=== PATIENT | female | born 1995 | race African-American/Black ===

== ENCOUNTER 2017-08-02 23:52 | Inpatient (IN) | payer SELFPAY ==
[~2017-08-02] VITALS: Ht 160 cm; Wt 86.2 kg
[2017-08-03] MEDS ORDERED: ONDANSETRON HCL 4MG/2ML VIAL IV ONE (06:45)
[2017-08-03] MEDS ORDERED: VANCOMYCIN 1 G PREMIX 200 ML IV SCH (06:45)
[2017-08-03] MEDS ORDERED: MORPHINE SULFATE 1MG/ML 1ML INJ SYR(NEO) IV ONE (06:45)
[2017-08-03 07:01] LABS: BASOPHILS % 0.7 % (0.0-2.0); EOSINOPHILS % 3.7 % (0.0-5.0); HEMOGLOBIN. 8.8 g/dL (12.0-16.0); LYMPHOCYTES % 24.4 % (20.0-50.0); MEAN CORPUSCULAR VOLUME 66.7 fL (81.0-99.0); MEAN PLATELET VOLUME 8.6 fl (7.4-10.4); NEUTROPHILS % 65.2 % (40.0-76.0); PLATELET 322 x1000/uL (130-400); RED CELL DISTRIBUTION WIDTH 18.7 % (11.6-14.6)
[2017-08-03 07:08] LABS: CHLORIDE 102 mEq/L (98-107)
[2017-08-03 07:13] LABS: CARBON DIOXIDE 26 mEq/L (21-32)
[2017-08-03] MEDS ORDERED: MORPHINE SULFATE 4 MG/ML CPJ (NOT FOR IM USE) IV ONE (07:15)
[2017-08-03] MEDS ORDERED: IOHEXOL-300 100 ML BOTTLE ONE (10:57)
[2017-08-03 12:31] LABS: PLATELET ESTIMATE NORMAL
[2017-08-03] MEDS ORDERED: OLANZAPINE 5MG TABLET ODT PO ONE (13:15)
[2017-08-03 16:25] VITALS: BP 95/49
[2017-08-03 18:00] VITALS: BP 99/50
[2017-08-03 20:00] VITALS: BP 116/61
[2017-08-03] MEDS ORDERED: NA PHOS,M-B/NA PHOS,DI-BA ENEMA 118ML PR PRN (21:15)
[2017-08-03] MEDS ORDERED: DOCUSATE SODIUM 100MG CAPSULE PO PRN (21:15)
[2017-08-03] MEDS ORDERED: MAGNESIUM/ALUMINUM HYDROXIDE/SIMETHICONE 30ML UDC PO PRN (21:15)
[2017-08-03] MEDS ORDERED: ACETAMINOPHEN 650MG/20.3ML UDC GT PRN (21:15)
[2017-08-03] MEDS ORDERED: ACETAMINOPHEN 325MG TABLET PO PRN (21:15)
[2017-08-03] MEDS ORDERED: DIPHENHYDRAMINE 50MG/ML VIAL IV PRN (21:15)
[2017-08-03] MEDS ORDERED: CLONIDINE 0.1MG TABLET PO PRN (21:15)
[2017-08-03] MEDS ORDERED: IPRATROPIUM/ALBUTEROL 0.5-3(2.5)MG/3ML NEB INH PRN (21:15)
[2017-08-03] MEDS ORDERED: PIPERACILLIN/TAZ 2.25G PREMIX 50 ML IV SCH (21:15)
[2017-08-03] MEDS ORDERED: ACETAMINOPHEN 650MG SUPP PR PRN (21:15)
[2017-08-03] MEDS ORDERED: GUAIFENESIN 200MG/10ML SUGAR FREE UDC PO PRN (21:15)
[2017-08-03 22:02] VITALS: BP 99/49
[2017-08-03] MEDS: PIPERACILLIN/TAZ 3.375G PREMIX 50 ML IV SCH (22:57)
[2017-08-03] MEDS: SODIUM CHLORIDE 0.9% INJ 3ML FLUSH IVF SCH (22:57)
[2017-08-03 23:34] LABS: CARBON DIOXIDE 29 mEq/L (21-32); CHLORIDE 102 mEq/L (98-107)
[2017-08-03] MEDS: VANCOMYCIN 750 MG PREMIX 150 ML IV SCH (23:37)
[2017-08-04] VITALS: BP 119/69
[2017-08-04] MEDS: HYDROCODONE/ACETAMINOPHEN 5/325MG TABLET PO PRN (00:13)
[2017-08-04 04:00] VITALS: BP 112/50
[2017-08-04 06:45] LABS: BASOPHILS % 0.8 % (0.0-2.0); EOSINOPHILS % 4.2 % (0.0-5.0); HEMATOCRIT. 28.1 % (36.0-48.0); HEMOGLOBIN. 8.8 g/dL (12.0-16.0); LYMPHOCYTES % 27.1 % (20.0-50.0); MEAN CORPUSCULAR HEMOGLOBIN 20.8 pg (28.0-32.0); MEAN CORPUSCULAR VOLUME 66.6 fL (81.0-99.0); MEAN PLATELET VOLUME 9.3 fl (7.4-10.4); MONOCYTES % 8.5 % (2.0-8.0); NEUTROPHILS % 59.4 % (40.0-76.0); PLATELET 314 x1000/uL (130-400); RED BLOOD CELL COUNT 4.22 mill/uL (4.2-5.4); RED CELL DISTRIBUTION WIDTH 18.5 % (11.6-14.6)
[2017-08-04] MEDS: SODIUM CHLORIDE 0.9% INJ 3ML FLUSH IVF SCH ×3 (06:53→21:16)
[2017-08-04] MEDS: PIPERACILLIN/TAZ 3.375G PREMIX 50 ML IV SCH ×2 (06:53→23:09)
[2017-08-04 07:58] LABS: CARBON DIOXIDE 29 mEq/L (21-32); CHLORIDE 101 mEq/L (98-107)
[2017-08-04 08:00] VITALS: BP 113/58
[2017-08-04] MEDS: VANCOMYCIN 750 MG PREMIX 150 ML IV SCH (08:05)
[2017-08-04 12:00] VITALS: BP 109/62
[2017-08-04] MEDS ORDERED: VANCOMYCIN 750 MG PREMIX 150 ML IV NR (13:00)
[2017-08-04 16:00] VITALS: BP 90/46
[2017-08-04 17:57] LABS: CLARITY URINE CLEAR (CLEAR); COLOR URINE YELLOW (YELLOW); GLUCOSE URINE NEGATIVE (NEGATIVE); KETONES URINE NEGATIVE (NEGATIVE); LEUKOCYTE ESTERASE URINE NEGATIVE (NEGATIVE); NITRITE URINE NEGATIVE (NEGATIVE); OCCULT BLOOD URINE 3+ (NEGATIVE); PH URINE 7.5 (4.5-8.0); PROTEIN URINE NEGATIVE (NEGATIVE); SPECIFIC GRAVITY URINE 1.017 (1.005-1.030); UROBILINOGEN URINE 0.2 E.U./dL (0.2-1.0)
[2017-08-04 18:27] LABS: *BARBITURATES SCREEN URINE NEGATIVE (NEGATIVE); *BENZODIAZEPINES SCREEN URINE NEGATIVE (NEGATIVE); *COCAINE SCREEN URINE NEGATIVE (NEGATIVE); CANNABINOID URINE SCREEN NEGATIVE (NEGATIVE); METHADONE URINE SCREEN NEGATIVE (NEGATIVE); PHENCYCLIDINE URINE SCREEN NEGATIVE (NEGATIVE)
[2017-08-04 18:30] LABS: *AMPHETAMINES SCREEN URINE PRESUMTIVE POSITIVE (NEGATIVE); OPIATES URINE SCREEN PRESUMTIVE POSITIVE (NEGATIVE)
[2017-08-04 20:00] VITALS: BP 112/64
[2017-08-04] MEDS: VANCOMYCIN 1250MG in DEXTROSE 5% WATER 250ML IV SCH (21:15)
[2017-08-04] MEDS: NICOTINE 21MG PATCH TD SCH (22:09)
[2017-08-05] VITALS: BP 101/62
[2017-08-05 04:00] VITALS: BP 118/53
[2017-08-05] MEDS: SODIUM CHLORIDE 0.9% INJ 3ML FLUSH IVF SCH ×3 (06:19→21:23)
[2017-08-05] MEDS: PIPERACILLIN/TAZ 3.375G PREMIX 50 ML IV SCH ×3 (06:19→20:15)
[2017-08-05 08:00] VITALS: BP 113/64
[2017-08-05] MEDS: VANCOMYCIN 1250MG in DEXTROSE 5% WATER 250ML IV SCH ×2 (08:49→21:23)
[2017-08-05] MEDS: NICOTINE 21MG PATCH TD SCH (08:54)
[2017-08-05] MEDS: HYDROCODONE/ACETAMINOPHEN 5/325MG TABLET PO PRN (08:56)
[2017-08-05 12:00] VITALS: BP 120/70
[2017-08-05 12:13] LABS: BASOPHILS % 0.7 % (0.0-2.0); EOSINOPHILS % 4.6 % (0.0-5.0); HEMATOCRIT. 30.2 % (36.0-48.0); HEMOGLOBIN. 9.4 g/dL (12.0-16.0); LYMPHOCYTES % 28.2 % (20.0-50.0); MEAN CORPUSCULAR HEMOGLOBIN 20.8 pg (28.0-32.0); MEAN CORPUSCULAR VOLUME 66.7 fL (81.0-99.0); MONOCYTES % 9.1 % (2.0-8.0); NEUTROPHILS % 57.4 % (40.0-76.0); PLATELET 344 x1000/uL (130-400); RED BLOOD CELL COUNT 4.53 mill/uL (4.2-5.4); RED CELL DISTRIBUTION WIDTH 18.5 % (11.6-14.6)
[2017-08-05 12:41] LABS: CARBON DIOXIDE 28 mEq/L (21-32); CHLORIDE 98 mEq/L (98-107)
[2017-08-05 16:00] VITALS: BP 110/60
[2017-08-05 20:00] VITALS: BP 111/52
[2017-08-06] VITALS: BP 109/60
[2017-08-06] MEDS: PIPERACILLIN/TAZ 3.375G PREMIX 50 ML IV SCH ×3 (02:30→16:24)
[2017-08-06 04:00] VITALS: BP 98/47
[2017-08-06] MEDS: SODIUM CHLORIDE 0.9% INJ 3ML FLUSH IVF SCH (06:10)
[2017-08-06 08:30] VITALS: BP 115/55
[2017-08-06] MEDS: NICOTINE 21MG PATCH TD SCH (10:21)
[2017-08-06] MEDS ORDERED: LEVO500T2 PO (12:10)
[2017-08-06] MEDS ORDERED: SULF1TAB48 PO (12:11)
[2017-08-06] MEDS: VANCOMYCIN 1250MG in DEXTROSE 5% WATER 250ML IV SCH (12:18)
[2017-08-06 13:32] LABS: CARBON DIOXIDE 29 mEq/L (21-32); CHLORIDE 101 mEq/L (98-107)
[2017-08-06] MEDS ORDERED: VANCOMYCIN 1250MG in DEXTROSE 5% WATER 250ML IV SCH (15:00)
[2017-08-06 16:00] VITALS: BP 99/49
== END 2017-08-06 18:30 | disposition home or self-care (01) | DRG 720 ==
LOC: ER 23:52 → ENRESERV 08-03 15:03 → 6EST 08-03 16:20
PROVIDERS: ADMIT Family Medicine; ATTEND Family Medicine
DX: A41.50 Gram-negative sepsis, unspecified (principal); J44.9 Chronic obstructive pulmonary disease, unspecified; E66.9 Obesity, unspecified; T63.301A Toxic effect of unspecified spider venom, accidental (unintentional), initial encounter; J45.909 Unspecified asthma, uncomplicated; D64.9 Anemia, unspecified; L03.211 Cellulitis of face; L03.213 Periorbital cellulitis; Z59.0 Homelessness; Z68.33 Body mass index [BMI] 33.0-33.9, adult
CPT/HCPCS: 36415; 70487; 80048; 80053; 80202; 80305; 81001; 85025; 87040; 87077; 87086; 87186; 96365; 99285; C1893; J2270; J2405; J2543; J3370; J7030; J7050; J7060; Q9967

== ENCOUNTER 2017-08-24 07:09 | Emergency (ER) | payer MEDICAID ==
[~2017-08-24 07:09] MED LIST: LEVO500T2 PO; SULF1TAB48 PO
== END 2017-08-24 08:10 | disposition left against medical advice (07) ==
LOC: ER 07:41
DX: Z53.21 Procedure and treatment not carried out due to patient leaving prior to being seen by health care provider (principal)

== ENCOUNTER 2017-08-27 06:41 | Emergency (ER) | payer MEDICAID ==
[~2017-08-27] VITALS: Ht 172.7 cm; Wt 86.0 kg
[2017-08-27 07:12] LABS: BASOPHILS % 0.9 % (0.0-2.0); EOSINOPHILS % 3.4 % (0.0-5.0); HEMATOCRIT. 24.7 % (36.0-48.0); HEMOGLOBIN. 7.9 g/dL (12.0-16.0); MEAN CORPUSCULAR HEMOGLOBIN 21.6 pg (28.0-32.0); MEAN CORPUSCULAR VOLUME 67.7 fL (81.0-99.0); MEAN PLATELET VOLUME 7.7 fl (7.4-10.4); MONOCYTES % 5.9 % (2.0-8.0); NEUTROPHILS % 52.8 % (40.0-76.0); PLATELET 303 x1000/uL (130-400); RED BLOOD CELL COUNT 3.64 mill/uL (4.2-5.4); RED CELL DISTRIBUTION WIDTH 18.5 % (11.6-14.6)
[2017-08-27 07:27] LABS: CARBON DIOXIDE 24 mEq/L (21-32); CHLORIDE 110 mEq/L (98-107); ETHANOL BLOOD < 10 mg/dL
[2017-08-27 08:09] LABS: PLATELET ESTIMATE NORMAL
[2017-08-27 08:56] LABS: CLARITY URINE CLOUDY (CLEAR); COLOR URINE ORANGE (YELLOW); GLUCOSE URINE NEGATIVE (NEGATIVE); KETONES URINE NEGATIVE (NEGATIVE); LEUKOCYTE ESTERASE URINE TRACE (NEGATIVE); NITRITE URINE NEGATIVE (NEGATIVE); OCCULT BLOOD URINE 3+ (NEGATIVE); PROTEIN URINE 1+ (NEGATIVE); SPECIFIC GRAVITY URINE 1.033 (1.005-1.030)
[2017-08-27 09:13] LABS: *BARBITURATES SCREEN URINE NEGATIVE (NEGATIVE); *BENZODIAZEPINES SCREEN URINE NEGATIVE (NEGATIVE); *COCAINE SCREEN URINE NEGATIVE (NEGATIVE); CANNABINOID URINE SCREEN NEGATIVE (NEGATIVE); METHADONE URINE SCREEN NEGATIVE (NEGATIVE); OPIATES URINE SCREEN NEGATIVE (NEGATIVE); PHENCYCLIDINE URINE SCREEN NEGATIVE (NEGATIVE)
[2017-08-27 09:19] LABS: *AMPHETAMINES SCREEN URINE PRESUMTIVE POSITIVE (NEGATIVE)
[2017-08-27] MEDS ORDERED: POTASSIUM CHLORIDE 10MEQ TABLET SR PO NR (09:45)
[2017-08-28 08:00] VITALS: BP 140/77
== END 2017-08-28 09:32 | disposition home or self-care (01) ==
LOC: ER 06:41
DX: R45.851 Suicidal ideations (principal); J45.909 Unspecified asthma, uncomplicated; F17.200 Nicotine dependence, unspecified, uncomplicated
CPT/HCPCS: 36415; 80053; 80305; 80307; 80329; 81001; 81025; 85025; 99284; G0482

== ENCOUNTER 2017-11-30 22:49 | Emergency (ER) | payer SELFPAY ==
[~2017-11-30] VITALS: Ht 167.6 cm; Wt 104.0 kg
[2017-11-30 22:54] VITALS: BP 114/78
== END 2017-12-01 00:21 | disposition left against medical advice (07) ==
LOC: ER 23:12
DX: Z53.21 Procedure and treatment not carried out due to patient leaving prior to being seen by health care provider (principal)

== ENCOUNTER 2018-08-12 20:52 | Emergency (ER) | payer SELFPAY ==
[~2018-08-12] VITALS: Ht 170.2 cm; Wt 95.0 kg
[2018-08-12] MEDS ORDERED: SODIUM CHLORIDE 0.9% 1,000 ML IV ONE (21:44)
[2018-08-12] MEDS ORDERED: CEFTRIAXONE 1 G PREMIX 50 ML IV ONE (21:45)
[2018-08-12] MEDS ORDERED: ACETAMINOPHEN 325MG TABLET PO ONE (22:00)
[2018-08-12 23:37] LABS: BASOPHILS % 0.9 % (0.0-2.0); EOSINOPHILS % 1.4 % (0.0-5.0); HEMATOCRIT. 30.2 % (36.0-48.0); HEMOGLOBIN. 9.1 g/dL (12.0-16.0); LYMPHOCYTES % 24.2 % (20.0-50.0); MEAN CORPUSCULAR VOLUME 66.2 fL (81.0-99.0); MEAN PLATELET VOLUME 8.8 fl (7.4-10.4); MONOCYTES % 8.5 % (2.0-8.0); PLATELET 396 x1000/uL (130-400); RED BLOOD CELL COUNT 4.57 mill/uL (4.2-5.4); RED CELL DISTRIBUTION WIDTH 25.7 % (11.6-14.6)
[2018-08-12 23:40] LABS: CHLORIDE 104 mEq/L (98-107)
[2018-08-12 23:42] LABS: HCG SCREEN NEGATIVE
[2018-08-12 23:44] LABS: ETHANOL BLOOD < 10 mg/dL
[2018-08-12 23:51] LABS: B-HCG QUANTITATIVE < 1 mIU/mL (<3)
[2018-08-13 00:26] VITALS: BP 121/81
[2018-08-13] MEDS ORDERED: IBUPROFEN 600MG TABLET PO ONE (00:30)
[2018-08-13 01:30] LABS: PLATELET ESTIMATE NORMAL
[2018-08-13 03:34] LABS: CLARITY URINE CLOUDY (CLEAR); COLOR URINE YELLOW (YELLOW); KETONES URINE TRACE (NEGATIVE); LEUKOCYTE ESTERASE URINE NEGATIVE (NEGATIVE); NITRITE URINE NEGATIVE (NEGATIVE); OCCULT BLOOD URINE 2+ (NEGATIVE); PH URINE 5.5 (4.5-8.0); PROTEIN URINE TRACE (NEGATIVE); SPECIFIC GRAVITY URINE 1.043 (1.005-1.030); UROBILINOGEN URINE 0.2 E.U./dL (0.2-1.0)
[2018-08-13 03:43] LABS: METHADONE URINE SCREEN NEGATIVE (NEGATIVE); OPIATES URINE SCREEN NEGATIVE (NEGATIVE)
[2018-08-13 03:46] LABS: *BARBITURATES SCREEN URINE NEGATIVE (NEGATIVE); *BENZODIAZEPINES SCREEN URINE NEGATIVE (NEGATIVE); *COCAINE SCREEN URINE NEGATIVE (NEGATIVE); CANNABINOID URINE SCREEN NEGATIVE (NEGATIVE); PHENCYCLIDINE URINE SCREEN NEGATIVE (NEGATIVE)
[2018-08-13 04:05] LABS: *AMPHETAMINES SCREEN URINE PRESUMTIVE POSITIVE (NEGATIVE)
== END 2018-08-13 07:31 | disposition home or self-care (01) ==
LOC: ER 20:52
DX: R45.851 Suicidal ideations (principal); K04.7 Periapical abscess without sinus; I10 Essential (primary) hypertension; J45.909 Unspecified asthma, uncomplicated; Z79.899 Other long term (current) drug therapy; Z98.890 Other specified postprocedural states
CPT/HCPCS: 36415; 76830; 76856; 80053; 80305; 80307; 80329; 81003; 84702; 84703; 85025; 93005; 96365; 99285; G0482; J0696; J7030; Z7610

== ENCOUNTER 2018-09-03 18:54 | Emergency (ER) | payer MEDICAID ==
[~2018-09-03] VITALS: Ht 160 cm; Wt 104.5 kg
[2018-09-03] MEDS ORDERED: SODIUM CHLORIDE 0.9% 1000ML BAG (SEPSIS BOLUS) IV ONE (19:15)
[2018-09-03] MEDS ORDERED: LORAZEPAM 2MG/ML CPJ IM ONE (19:30)
[2018-09-03 19:34] VITALS: BP 136/76
[2018-09-03 20:22] LABS: BASOPHILS % 0.6 % (0.0-2.0); EOSINOPHILS % 1.1 % (0.0-5.0); HEMATOCRIT. 28.3 % (36.0-48.0); HEMOGLOBIN. 8.7 g/dL (12.0-16.0); LYMPHOCYTES % 20.4 % (20.0-50.0); MEAN CORPUSCULAR HEMOGLOBIN 20.2 pg (28.0-32.0); MEAN CORPUSCULAR VOLUME 65.7 fL (81.0-99.0); MEAN PLATELET VOLUME 8.7 fl (7.4-10.4); MONOCYTES % 9.2 % (2.0-8.0); NEUTROPHILS % 68.7 % (40.0-76.0); PLATELET 433 x1000/uL (130-400); RED BLOOD CELL COUNT 4.31 mill/uL (4.2-5.4); RED CELL DISTRIBUTION WIDTH 26.2 % (11.6-14.6)
[2018-09-03 20:27] LABS: PROTHROMBIN TIME 10.3 sec (9.1-11.1)
[2018-09-03 20:30] LABS: CHLORIDE 107 mEq/L (98-107)
[2018-09-03 20:41] LABS: *BARBITURATES SCREEN URINE NEGATIVE (NEGATIVE); *BENZODIAZEPINES SCREEN URINE NEGATIVE (NEGATIVE); *COCAINE SCREEN URINE NEGATIVE (NEGATIVE)
[2018-09-03 20:42] LABS: CANNABINOID URINE SCREEN NEGATIVE (NEGATIVE); METHADONE URINE SCREEN NEGATIVE (NEGATIVE); OPIATES URINE SCREEN NEGATIVE (NEGATIVE); PHENCYCLIDINE URINE SCREEN NEGATIVE (NEGATIVE)
[2018-09-03 20:48] LABS: *AMPHETAMINES SCREEN URINE PRESUMTIVE POSITIVE (NEGATIVE)
[2018-09-03 20:58] LABS: CLARITY URINE CLOUDY (CLEAR); COLOR URINE YELLOW (YELLOW); KETONES URINE TRACE (NEGATIVE); LEUKOCYTE ESTERASE URINE NEGATIVE (NEGATIVE); NITRITE URINE NEGATIVE (NEGATIVE); OCCULT BLOOD URINE 1+ (NEGATIVE); PH URINE 5.5 (4.5-8.0); PROTEIN URINE 1+ (NEGATIVE); SPECIFIC GRAVITY URINE 1.022 (1.005-1.030); UROBILINOGEN URINE 0.2 E.U./dL (0.2-1.0)
[2018-09-03 21:11] LABS: PLATELET ESTIMATE NORMAL
== END 2018-09-03 21:55 | disposition home or self-care (01) ==
LOC: ER 19:15 → CANBEDREQ 22:03
DX: F15.10 Other stimulant abuse, uncomplicated (principal); R00.0 Tachycardia, unspecified; R06.02 Shortness of breath; D72.829 Elevated white blood cell count, unspecified; D64.9 Anemia, unspecified; R05 Cough; R07.89 Other chest pain; J45.909 Unspecified asthma, uncomplicated; I10 Essential (primary) hypertension; F17.200 Nicotine dependence, unspecified, uncomplicated; Z98.890 Other specified postprocedural states
CPT/HCPCS: 36415; 80053; 80305; 81003; 81025; 83605; 84145; 84484; 85025; 85610; 87040; 87086; 93005; 96372; 99285; J2060; J7030

== ENCOUNTER 2019-04-26 20:11 | Emergency (ER) | payer SELFPAY ==
[~2019-04-26] VITALS: Ht 162.6 cm; Wt 79.0 kg
[2019-04-26] MEDS ORDERED: SODIUM CHLORIDE 0.9% 1,000 ML IV ONE (21:59)
[2019-04-26] MEDS ORDERED: ONDANSETRON HCL 4MG/2ML INJ IV STA (21:59)
[2019-04-26 22:45] LABS: CLARITY URINE CLOUDY (CLEAR); COLOR URINE YELLOW (YELLOW); KETONES URINE NEGATIVE (NEGATIVE); LEUKOCYTE ESTERASE URINE NEGATIVE (NEGATIVE); NITRITE URINE NEGATIVE (NEGATIVE); OCCULT BLOOD URINE NEGATIVE (NEGATIVE); PH URINE 6.5 (4.5-8.0); PROTEIN URINE TRACE (NEGATIVE); SPECIFIC GRAVITY URINE 1.037 (1.005-1.030); UROBILINOGEN URINE 0.2 E.U./dL (0.2-1.0)
[2019-04-26 22:56] LABS: CHLORIDE 105 mEq/L (98-107)
[2019-04-26 23:01] LABS: BASOPHILS % 0.7 % (0.0-2.0); HEMATOCRIT. 36.7 % (36.0-48.0); HEMOGLOBIN. 11.4 g/dL (12.0-16.0); LYMPHOCYTES % 24.3 % (20.0-50.0); MEAN CORPUSCULAR HEMOGLOBIN 20.9 pg (28.0-32.0); MEAN CORPUSCULAR VOLUME 67.2 fL (81.0-99.0); MONOCYTES % 5.6 % (2.0-8.0); NEUTROPHILS % 66.4 % (40.0-76.0); RED BLOOD CELL COUNT 5.46 mill/uL (4.2-5.4); RED CELL DISTRIBUTION WIDTH 20.9 % (11.6-14.6)
[2019-04-26 23:10] LABS: MEAN PLATELET VOLUME 9.1 fl (7.4-10.4); PLATELET 317 x1000/uL (130-400); PLATELET ESTIMATE NORMAL
[2019-04-27] MEDS ORDERED: ONDANSETRON 4MG ODT PO ONE (01:45)
[2019-04-27 02:32] VITALS: BP 116/70
== END 2019-04-27 02:30 | disposition home or self-care (01) ==
LOC: ER 20:11
DX: O21.9 Vomiting of pregnancy, unspecified (principal); Z3A.01 Less than 8 weeks gestation of pregnancy
CPT/HCPCS: 36415; 80053; 81003; 81025; 83690; 85025; 85610; 96361; 96374; 99283; J2405; J7030; Q0162; Z7610

== ENCOUNTER 2019-05-27 00:43 | Emergency (ER) | payer SELFPAY ==
[~2019-05-27] VITALS: Ht 160 cm; Wt 82.0 kg
[2019-05-27] MEDS ORDERED: SODIUM CHLORIDE 0.9% 1,000 ML IV ONE ×2 (01:03→17:19)
[2019-05-27 01:23] LABS: BASOPHILS % 0.3 % (0.0-2.0); EOSINOPHILS % 1.1 % (0.0-5.0); HEMATOCRIT. 30.5 % (36.0-48.0); HEMOGLOBIN. 9.9 g/dL (12.0-16.0); LYMPHOCYTES % 16.7 % (20.0-50.0); MEAN CORPUSCULAR HEMOGLOBIN 22.9 pg (28.0-32.0); MEAN CORPUSCULAR VOLUME 70.5 fL (81.0-99.0); MEAN PLATELET VOLUME 8.9 fl (7.4-10.4); MONOCYTES % 5.8 % (2.0-8.0); NEUTROPHILS % 76.1 % (40.0-76.0); PLATELET 282 x1000/uL (130-400); RED BLOOD CELL COUNT 4.32 mill/uL (4.2-5.4); RED CELL DISTRIBUTION WIDTH 22.6 % (11.6-14.6)
[2019-05-27 01:26] LABS: CHLORIDE 106 mEq/L (98-107)
[2019-05-27 01:30] LABS: ETHANOL BLOOD < 10 mg/dL
[2019-05-27 01:46] LABS: CLARITY URINE CLOUDY (CLEAR); COLOR URINE YELLOW (YELLOW); KETONES URINE 1+ (NEGATIVE); LEUKOCYTE ESTERASE URINE NEGATIVE (NEGATIVE); NITRITE URINE NEGATIVE (NEGATIVE); OCCULT BLOOD URINE NEGATIVE (NEGATIVE); PROTEIN URINE 2+ (NEGATIVE); SPECIFIC GRAVITY URINE 1.029 (1.005-1.030)
[2019-05-27 01:55] LABS: *BARBITURATES SCREEN URINE NEGATIVE (NEGATIVE); *BENZODIAZEPINES SCREEN URINE NEGATIVE (NEGATIVE); *COCAINE SCREEN URINE NEGATIVE (NEGATIVE); METHADONE URINE SCREEN NEGATIVE (NEGATIVE); OPIATES URINE SCREEN NEGATIVE (NEGATIVE)
[2019-05-27 01:56] LABS: CANNABINOID URINE SCREEN NEGATIVE (NEGATIVE); PHENCYCLIDINE URINE SCREEN NEGATIVE (NEGATIVE)
[2019-05-27 02:12] LABS: *AMPHETAMINES SCREEN URINE PRESUMTIVE POSITIVE (NEGATIVE)
[2019-05-27] MEDS ORDERED: BUPR100T13 MT (03:27)
[2019-05-27] MEDS ORDERED: BUPR300T52 MT (03:27)
[2019-05-27] MEDS ORDERED: ASPI-1158 PO (03:27)
[2019-05-27] MEDS ORDERED: QUET300T19 MT (03:27)
[2019-05-27] MEDS ORDERED: TRAZ-213 MT (03:27)
[2019-05-27] MEDS ORDERED: ONDANSETRON HCL 4MG/2ML INJ IV STA (17:19)
[2019-05-27] MEDS ORDERED: ONDANSETRON 4MG ODT PO ONE (17:45)
[2019-05-27 17:47] LABS: HEMATOCRIT. 31.5 % (36.0-48.0); MEAN CORPUSCULAR HEMOGLOBIN 22.6 pg (28.0-32.0); MEAN CORPUSCULAR VOLUME 70.8 fL (81.0-99.0); MEAN PLATELET VOLUME 9.3 fl (7.4-10.4); PLATELET 301 x1000/uL (130-400); RED BLOOD CELL COUNT 4.45 mill/uL (4.2-5.4); RED CELL DISTRIBUTION WIDTH 23.2 % (11.6-14.6)
[2019-05-27 19:16] LABS: PLATELET ESTIMATE NORMAL
[2019-05-27] MEDS ORDERED: ONDANSETRON 4MG/5ML UDC PO ONE (21:30)
[2019-05-27] MEDS ORDERED: ONDANSETRON 4MG ODT PO NR (22:01)
[2019-05-30 07:34] VITALS: BP 119/66
== END 2019-05-30 12:54 | disposition home or self-care (01) ==
LOC: ER 00:43
DX: O26.891 Other specified pregnancy related conditions, first trimester (principal); T43.592A Poisoning by other antipsychotics and neuroleptics, intentional self-harm, initial encounter; T43.212A Poisoning by selective serotonin and norepinephrine reuptake inhibitors, intentional self-harm, initial encounter; R45.851 Suicidal ideations; F15.10 Other stimulant abuse, uncomplicated; J45.909 Unspecified asthma, uncomplicated; F32.9 Major depressive disorder, single episode, unspecified; I10 Essential (primary) hypertension; Y92.89 Other specified places as the place of occurrence of the external cause; Z98.890 Other specified postprocedural states; Z3A.11 11 weeks gestation of pregnancy; Z79.899 Other long term (current) drug therapy
CPT/HCPCS: 36415; 76830; 76856; 80053; 80305; 80307; 80320; 80329; 81003; 81025; 83690; 83735; 85025; 93005; 99284; J7030; Q0162; G0480

== ENCOUNTER 2019-09-01 16:48 | Observation (INO) | payer MEDICAID ==
[~2019-09-01] VITALS: Ht 160 cm; Wt 86.2 kg
[~2019-09-01 16:48] MED LIST changes: +ASPI-1158 PO; +BUPR100T13 MT; +BUPR300T52 MT; +QUET300T19 MT; +TRAZ-213 MT
[2019-09-01] MEDS ORDERED: LACTATED RINGERS 1,000 ML IV SCH (18:08)
[2019-09-01] MEDS ORDERED: LACTATED RINGERS 1,000 ML IV NR (18:08)
[2019-09-01] MEDS ORDERED: ONDANSETRON HCL 4MG/2ML INJ IV NR (18:15)
[2019-09-01] MEDS ORDERED: ACETAMINOPHEN 500MG TABLET PO NR (18:15)
[2019-09-01] MEDS ORDERED: CEFAZOLIN 2,000 MG in DEXT 5% WATER 100 ML IV NR (18:30)
[2019-09-01 19:35] LABS: CLARITY URINE CLOUDY (CLEAR); COLOR URINE AMBER (YELLOW); KETONES URINE 4+ (NEGATIVE); LEUKOCYTE ESTERASE URINE TRACE (NEGATIVE); NITRITE URINE NEGATIVE (NEGATIVE); OCCULT BLOOD URINE NEGATIVE (NEGATIVE); PH URINE 6.5 (4.5-8.0); PROTEIN URINE 2+ (NEGATIVE); SPECIFIC GRAVITY URINE 1.034 (1.005-1.030)
[2019-09-01 20:32] LABS: HEMATOCRIT 25.8 % (36.0-48.0); HEMOGLOBIN 8.1 g/dL (12.0-16.0); MEAN CORPUSCULAR HEMOGLOBIN 22.3 pg (28.0-32.0); MEAN CORPUSCULAR VOLUME 70.7 fL (81.0-99.0); PLATELET 283 x1000/uL (130-400); RED BLOOD CELL COUNT 3.64 mill/uL (4.2-5.4); RED CELL DISTRIBUTION WIDTH 17.2 % (11.6-14.6)
[2019-09-01 20:38] LABS: CHLORIDE 101 mEq/L (98-107)
[2019-09-01] MEDS ORDERED: ONDA4TAB5 MT (21:06)
[2019-09-01] MEDS ORDERED: FAMO-135 MT (21:06)
[2019-09-01] MEDS ORDERED: POTASSIUM CHLORIDE 20MEQ TABLET SR PO NR (21:15)
[2019-09-01] MEDS ORDERED: FAMOTIDINE 20MG TABLET PO NR (21:16)
[2019-09-01] MEDS: ONDANSETRON HCL 4MG/2ML INJ IV PRN (22:28)
[2019-09-01] MEDS ORDERED: DEXT 5%/LACTATED RINGERS 1,000 ML IV SCH (22:30)
[2019-09-01 23:23] LABS: *BARBITURATES SCREEN URINE NEGATIVE (NEGATIVE); *BENZODIAZEPINES SCREEN URINE NEGATIVE (NEGATIVE); *COCAINE SCREEN URINE NEGATIVE (NEGATIVE)
[2019-09-01 23:24] LABS: CANNABINOID URINE SCREEN NEGATIVE (NEGATIVE); METHADONE URINE SCREEN NEGATIVE (NEGATIVE); OPIATES URINE SCREEN NEGATIVE (NEGATIVE); PHENCYCLIDINE URINE SCREEN NEGATIVE (NEGATIVE)
[2019-09-01 23:30] LABS: *AMPHETAMINES SCREEN URINE PRESUMTIVE POSITIVE (NEGATIVE)
[2019-09-02] MEDS: ONDANSETRON HCL 4MG/2ML INJ IV PRN (03:06)
[2019-09-08 14:12] LABS: AMPHETAMINE CONF URINE Positive (.)
== END 2019-09-02 06:20 | disposition home or self-care (01) ==
LOC: EDSTATUS 17:15 → 8 EST LDRP 17:16
PROVIDERS: ADMIT Obstetrics & Gynecology; ATTEND Obstetrics & Gynecology
DX: O21.2 Late vomiting of pregnancy (principal); O34.219 Maternal care for unspecified type scar from previous cesarean delivery; Z3A.25 25 weeks gestation of pregnancy
CPT/HCPCS: 36415; 76805; 80053; 80305; 80307; 80359; 81003; 85027; 87804; 96361; 96374; 96375; 96376; 99281; G0378; J0690; J2405; J7060; 96360; 96365

== ENCOUNTER 2019-10-31 23:40 | Observation (INO) | payer MEDICAID ==
[~2019-10-31] VITALS: Ht 160 cm; Wt 90.7 kg
[~2019-10-31 23:40] MED LIST changes: +FAMO-135 MT; -LEVO500T2 PO; +ONDA4TAB5 MT; -SULF1TAB48 PO; -TRAZ-213 MT; +TRAZ-252 MT
[2019-11-01] MEDS ORDERED: SODIUM CHLORIDE 0.9% 1,000 ML IV ONE (00:15)
[2019-11-01 01:17] LABS: CLARITY URINE CLEAR (CLEAR); COLOR URINE DARK YELLOW (YELLOW); KETONES URINE 3+ (NEGATIVE); LEUKOCYTE ESTERASE URINE NEGATIVE (NEGATIVE); NITRITE URINE NEGATIVE (NEGATIVE); OCCULT BLOOD URINE NEGATIVE (NEGATIVE); PROTEIN URINE 1+ (NEGATIVE); SPECIFIC GRAVITY URINE 1.025 (1.005-1.030)
[2019-11-01 01:28] LABS: CANNABINOID URINE SCREEN NEGATIVE (NEGATIVE); OPIATES URINE SCREEN NEGATIVE (NEGATIVE); PHENCYCLIDINE URINE SCREEN NEGATIVE (NEGATIVE)
[2019-11-01 01:29] LABS: *BARBITURATES SCREEN URINE NEGATIVE (NEGATIVE); *BENZODIAZEPINES SCREEN URINE NEGATIVE (NEGATIVE); *COCAINE SCREEN URINE NEGATIVE (NEGATIVE); METHADONE URINE SCREEN NEGATIVE (NEGATIVE)
[2019-11-01 01:30] LABS: *AMPHETAMINES SCREEN URINE PRESUMTIVE POSITIVE (NEGATIVE)
[2019-11-01] MEDS ORDERED: ONDANSETRON HCL 4MG/2ML INJ IV PRN (02:00)
[2019-11-01 03:40] LABS: BASOPHILS % 0.5 % (0.0-2.0); EOSINOPHILS % 1.6 % (0.0-5.0); HEMATOCRIT. 24.6 % (36.0-48.0); HEMOGLOBIN. 7.9 g/dL (12.0-16.0); LYMPHOCYTES % 18.4 % (20.0-50.0); MEAN CORPUSCULAR HEMOGLOBIN 22.4 pg (28.0-32.0); MEAN CORPUSCULAR VOLUME 69.2 fL (81.0-99.0); MEAN PLATELET VOLUME 9.6 fl (7.4-10.4); MONOCYTES % 8.3 % (2.0-8.0); NEUTROPHILS % 71.2 % (40.0-76.0); PLATELET 226 x1000/uL (130-400); RED BLOOD CELL COUNT 3.55 mill/uL (4.2-5.4); RED CELL DISTRIBUTION WIDTH 22.5 % (11.6-14.6)
[2019-11-01 03:41] LABS: CHLORIDE 109 mEq/L (98-107)
[2019-11-01 03:48] LABS: PARTIAL THROMBOPLASTIN TIME 27.7 sec (23.4-31.0); PROTHROMBIN TIME 10.1 sec (9.6-11.0)
[2019-11-01] MEDS ORDERED: ACETAMINOPHEN 500MG TABLET PO ONE (04:30)
[2019-11-01] MEDS ORDERED: KCL 10MEQ/50ML PREMIX 50 ML IV SCH (05:00)
[2019-11-01] MEDS: DIPHENHYDRAMINE 50MG/ML VIAL IM PRN ×2 (05:06→05:11)
[2019-11-01] MEDS ORDERED: LIDOCAINE HCL/PF 1% 10 MG/ML 5ML VIAL ONE (05:13)
[2019-11-01] MEDS ORDERED: PROCHLORPERAZINE 10MG/2ML VIAL IV PRN (07:00)
[2019-11-01 07:51] LABS: PLATELET ESTIMATE NORMAL
[2019-11-01 08:00] VITALS: BP 139/83
== END 2019-11-01 10:30 | disposition home or self-care (01) ==
LOC: 8 EST LDRP 23:40
PROVIDERS: ADMIT Specialist; ATTEND Specialist
DX: O21.9 Vomiting of pregnancy, unspecified (principal); O26.893 Other specified pregnancy related conditions, third trimester; O62.9 Abnormality of forces of labor, unspecified; M54.9 Dorsalgia, unspecified; O12.03 Gestational edema, third trimester; Z3A.33 33 weeks gestation of pregnancy
CPT/HCPCS: 36415; 36430; 76805; 76818; 80053; 80305; 80307; 81003; 84550; 85025; 85384; 85610; 85730; 86850; 86900; 86901; 86920; 96361; 96372; 96374; 99281; G0378; J1200; J2405; J3480; J3490; 96360; P9016

== ENCOUNTER 2019-11-04 08:09 | Observation (INO) | payer MEDICAID ==
[~2019-11-04] VITALS: Ht 160 cm; Wt 90.7 kg
[~2019-11-04 08:09] MED LIST changes: -ASPI-1158 PO; -BUPR100T13 MT; -BUPR300T52 MT
[2019-11-04 09:15] LABS: BASOPHILS % 0.7 % (0.0-2.0); EOSINOPHILS % 1.9 % (0.0-5.0); HEMATOCRIT. 27.7 % (36.0-48.0); HEMOGLOBIN. 9.1 g/dL (12.0-16.0); LYMPHOCYTES % 20.2 % (20.0-50.0); MEAN CORPUSCULAR HEMOGLOBIN 22.7 pg (28.0-32.0); MEAN CORPUSCULAR VOLUME 69.3 fL (81.0-99.0); MEAN PLATELET VOLUME 9.7 fl (7.4-10.4); MONOCYTES % 8.2 % (2.0-8.0); PLATELET 251 x1000/uL (130-400); RED BLOOD CELL COUNT 4.01 mill/uL (4.2-5.4); RED CELL DISTRIBUTION WIDTH 20.9 % (11.6-14.6)
[2019-11-04 09:20] LABS: CLARITY URINE TURBID (CLEAR); COLOR URINE DARK YELLOW (YELLOW); KETONES URINE TRACE (NEGATIVE); LEUKOCYTE ESTERASE URINE 3+ (NEGATIVE); NITRITE URINE NEGATIVE (NEGATIVE); OCCULT BLOOD URINE TRACE (NEGATIVE); PH URINE 8.5 (4.5-8.0); PROTEIN URINE 1+ (NEGATIVE); SPECIFIC GRAVITY URINE 1.015 (1.005-1.030)
[2019-11-04 09:22] LABS: CHLORIDE 108 mEq/L (98-107)
[2019-11-04] MEDS ORDERED: ONDANSETRON HCL 4MG/2ML INJ IV PRN (09:30)
[2019-11-04 09:32] LABS: D-DIMER 1.14 mg/L FEU (<0.50); INR 0.9; PARTIAL THROMBOPLASTIN TIME 22.6 sec (23.4-31.0); PROTHROMBIN TIME 9.7 sec (9.6-11.0)
[2019-11-04 09:40] LABS: *AMPHETAMINES SCREEN URINE NEGATIVE (NEGATIVE)
[2019-11-04 09:41] LABS: *BARBITURATES SCREEN URINE NEGATIVE (NEGATIVE); *BENZODIAZEPINES SCREEN URINE NEGATIVE (NEGATIVE); *COCAINE SCREEN URINE NEGATIVE (NEGATIVE); CANNABINOID URINE SCREEN NEGATIVE (NEGATIVE); METHADONE URINE SCREEN NEGATIVE (NEGATIVE); OPIATES URINE SCREEN NEGATIVE (NEGATIVE); PHENCYCLIDINE URINE SCREEN NEGATIVE (NEGATIVE)
== END 2019-11-04 10:30 | disposition home or self-care (01) ==
LOC: 8 EST LDRP 08:09
PROVIDERS: ADMIT Obstetrics & Gynecology; ATTEND Obstetrics & Gynecology
DX: O26.893 Other specified pregnancy related conditions, third trimester (principal); R10.9 Unspecified abdominal pain; O36.8130 Decreased fetal movements, third trimester, not applicable or unspecified; Z3A.34 34 weeks gestation of pregnancy
CPT/HCPCS: 36415; 80053; 80305; 81003; 84550; 85025; 85379; 85384; 85610; 85730; 87086; 99281; G0378; J2405

== ENCOUNTER 2019-11-05 07:37 | Emergency (ER) | payer MEDICAID ==
[~2019-11-05] VITALS: Ht 160 cm; Wt 91.0 kg
[2019-11-05] MEDS ORDERED: ONDANSETRON 4MG ODT PO ONE (12:00)
[2019-11-05] MEDS ORDERED: CLONIDINE 0.2MG TABLET PO ONE (19:30)
[2019-11-05] MEDS ORDERED: ACETAMINOPHEN 500MG TABLET PO ONE (19:30)
[2019-11-06 14:55] VITALS: BP 119/71
== END 2019-11-06 15:30 | disposition home or self-care (01) ==
LOC: ER 08:06
DX: O26.893 Other specified pregnancy related conditions, third trimester (principal); O16.3 Unspecified maternal hypertension, third trimester; O99.513 Diseases of the respiratory system complicating pregnancy, third trimester; R00.0 Tachycardia, unspecified; Z3A.34 34 weeks gestation of pregnancy; Z79.82 Long term (current) use of aspirin; Z79.899 Other long term (current) drug therapy; Z98.890 Other specified postprocedural states; F32.9 Major depressive disorder, single episode, unspecified; F17.290 Nicotine dependence, other tobacco product, uncomplicated; F15.10 Other stimulant abuse, uncomplicated
CPT/HCPCS: 99284; Q0162

== ENCOUNTER 2019-11-10 02:53 | Observation (INO) | payer MEDICAID ==
[~2019-11-10] VITALS: Ht 160 cm; Wt 90.7 kg
[2019-11-10] MEDS ORDERED: TERBUTALINE SULFATE 1MG/ML VIAL SUBCUT PRN (03:30)
[2019-11-10] MEDS ORDERED: DEXT 5%/LACTATED RINGERS 1,000 ML IV SCH (03:30)
[2019-11-10 05:50] LABS: CHLORIDE 106 mEq/L (98-107)
[2019-11-10 06:23] LABS: PARTIAL THROMBOPLASTIN TIME 28.7 sec (23.4-31.0); PROTHROMBIN TIME 10.3 sec (9.6-11.0)
[2019-11-10 06:24] LABS: CLARITY URINE CLOUDY (CLEAR); COLOR URINE DARK YELLOW (YELLOW); KETONES URINE 1+ (NEGATIVE); LEUKOCYTE ESTERASE URINE 2+ (NEGATIVE); NITRITE URINE NEGATIVE (NEGATIVE); OCCULT BLOOD URINE NEGATIVE (NEGATIVE); PH URINE 6.5 (4.5-8.0); PROTEIN URINE 1+ (NEGATIVE); SPECIFIC GRAVITY URINE 1.021 (1.005-1.030)
[2019-11-10 06:35] LABS: BASOPHILS % 0.3 % (0.0-2.0); EOSINOPHILS % 1.2 % (0.0-5.0); HEMATOCRIT. 24.9 % (36.0-48.0); HEMOGLOBIN. 8.1 g/dL (12.0-16.0); LYMPHOCYTES % 9.7 % (20.0-50.0); MEAN CORPUSCULAR VOLUME 70.7 fL (81.0-99.0); MEAN PLATELET VOLUME 9.4 fl (7.4-10.4); NEUTROPHILS % 75.8 % (40.0-76.0); PLATELET 220 x1000/uL (130-400); RED BLOOD CELL COUNT 3.53 mill/uL (4.2-5.4); RED CELL DISTRIBUTION WIDTH 21.9 % (11.6-14.6)
[2019-11-10 06:50] LABS: *BARBITURATES SCREEN URINE NEGATIVE (NEGATIVE); *BENZODIAZEPINES SCREEN URINE NEGATIVE (NEGATIVE); *COCAINE SCREEN URINE NEGATIVE (NEGATIVE); CANNABINOID URINE SCREEN NEGATIVE (NEGATIVE); METHADONE URINE SCREEN NEGATIVE (NEGATIVE); PHENCYCLIDINE URINE SCREEN NEGATIVE (NEGATIVE)
[2019-11-10 06:51] LABS: OPIATES URINE SCREEN NEGATIVE (NEGATIVE)
[2019-11-10] MEDS: POTASSIUM CHLORIDE 20MEQ TABLET SR PO SCH ×2 (07:09→11:34)
[2019-11-10 07:10] LABS: *AMPHETAMINES SCREEN URINE PRESUMTIVE POSITIVE (NEGATIVE)
== END 2019-11-10 13:30 | disposition home or self-care (01) ==
LOC: 8 EST LDRP 02:53
PROVIDERS: ADMIT Obstetrics & Gynecology; ATTEND Obstetrics & Gynecology
DX: O21.2 Late vomiting of pregnancy (principal); O26.893 Other specified pregnancy related conditions, third trimester; M54.9 Dorsalgia, unspecified; R10.9 Unspecified abdominal pain; Z3A.35 35 weeks gestation of pregnancy
CPT/HCPCS: 36415; 80053; 80305; 80307; 80359; 81003; 84132; 84550; 85025; 85384; 85610; 85730; 99281; G0378; J3105; 96360; 96361; J7121

== ENCOUNTER 2019-11-19 00:55 | Observation (INO) | payer MEDICAID ==
[~2019-11-19] VITALS: Ht 160 cm; Wt 90.7 kg
[2019-11-19] MEDS ORDERED: ONDANSETRON HCL 4MG/2ML INJ IV PRN (01:30)
[2019-11-19] MEDS: LACTATED RINGERS 1,000 ML IV SCH ×2 (01:51→02:54)
[2019-11-19 01:56] LABS: HEMATOCRIT 31.1 % (36.0-48.0); HEMOGLOBIN 9.9 g/dL (12.0-16.0); MEAN CORPUSCULAR HEMOGLOBIN 21.8 pg (28.0-32.0); MEAN CORPUSCULAR VOLUME 68.6 fL (81.0-99.0); PLATELET 420 x1000/uL (130-400); RED BLOOD CELL COUNT 4.54 mill/uL (4.2-5.4); RED CELL DISTRIBUTION WIDTH 21.3 % (11.6-14.6)
[2019-11-19 02:04] LABS: CHLORIDE 107 mEq/L (98-107)
[2019-11-19 02:45] LABS: CLARITY URINE CLOUDY (CLEAR); COLOR URINE DARK YELLOW (YELLOW); KETONES URINE 4+ (NEGATIVE); LEUKOCYTE ESTERASE URINE 3+ (NEGATIVE); NITRITE URINE NEGATIVE (NEGATIVE); OCCULT BLOOD URINE TRACE (NEGATIVE); PROTEIN URINE 2+ (NEGATIVE); SPECIFIC GRAVITY URINE 1.023 (1.005-1.030)
[2019-11-19 03:04] LABS: CANNABINOID URINE SCREEN NEGATIVE (NEGATIVE); METHADONE URINE SCREEN NEGATIVE (NEGATIVE); OPIATES URINE SCREEN NEGATIVE (NEGATIVE); PHENCYCLIDINE URINE SCREEN NEGATIVE (NEGATIVE)
[2019-11-19 03:05] LABS: *AMPHETAMINES SCREEN URINE NEGATIVE (NEGATIVE); *BARBITURATES SCREEN URINE NEGATIVE (NEGATIVE); *BENZODIAZEPINES SCREEN URINE NEGATIVE (NEGATIVE); *COCAINE SCREEN URINE NEGATIVE (NEGATIVE)
[2019-11-19] MEDS ORDERED: POTASSIUM CHLORIDE 20MEQ/PACKET PO NR ×3 (03:30→06:30)
[2019-11-19] MEDS: CEFAZOLIN 2,000 MG in DEXT 5% WATER 100 ML IV NR ×3 (03:56→04:44)
[2019-11-19] MEDS ORDERED: POTASSIUM CHLORIDE INJ 40 MEQ in DEXT 5% WATER 500 ML IV NR (05:00)
[2019-11-19] MEDS ORDERED: METOCLOPRAMIDE HCL 10MG/2ML VIAL IV PRN (05:45)
== END 2019-11-19 18:00 | disposition home or self-care (01) ==
LOC: 8 EST LDRP 00:55
PROVIDERS: ADMIT Obstetrics & Gynecology; ATTEND Obstetrics & Gynecology
DX: O21.2 Late vomiting of pregnancy (principal); O62.9 Abnormality of forces of labor, unspecified; O36.8130 Decreased fetal movements, third trimester, not applicable or unspecified; Z3A.38 38 weeks gestation of pregnancy; Z98.891 History of uterine scar from previous surgery
CPT/HCPCS: 36415; 76805; 76818; 80053; 80305; 81003; 84132; 85027; 96361; 96365; 96375; 99281; G0378; J0690; J2405; J2765; J3480; J7060; 96360

== ENCOUNTER 2022-03-09 23:16 | Emergency (ER) | payer MEDICAID, OTHER ==
[~2022-03-09] VITALS: Ht 165.1 cm; Wt 82.0 kg
[2022-03-09] MEDS ORDERED: ACETAMINOPHEN WITH CODEINE 300/30MG TABLET PO ONE (23:45)
[2022-03-10 04:30] VITALS: BP 131/65
== END 2022-03-10 04:53 | disposition home or self-care (01) ==
LOC: ER 23:16
DX: S39.81XA Other specified injuries of abdomen, initial encounter (principal); W22.8XXA Striking against or struck by other objects, initial encounter; I10 Essential (primary) hypertension; F15.90 Other stimulant use, unspecified, uncomplicated; J45.909 Unspecified asthma, uncomplicated; Y93.55 Activity, bike riding; Y92.488 Other paved roadways as the place of occurrence of the external cause
CPT/HCPCS: 74176; 81025; 99291

== ENCOUNTER 2023-05-21 21:20 | Emergency (ER) | payer MEDICAID, OTHER ==
[~2023-05-21] VITALS: Ht 160 cm; Wt 86.0 kg
[2023-05-21 21:22] VITALS: BP 156/93; O2SAT 100
[2023-05-21] MEDS ORDERED: BALANCED SALT IRRIG SOLN 15ML IR ONE (22:00)
[2023-05-21] MEDS ORDERED: FLUORESCEIN SODIUM 1MG/STRIP LEFTEYE ONE (22:00)
[2023-05-21] MEDS ORDERED: TETRACAINE 0.5% OPHTH DROPS 4ML RIGHTEYE ONE (23:00)
[2023-05-22 00:30] VITALS: PULSE 90; RESP 16; TEMP 98.4
== END 2023-05-22 00:30 | disposition home or self-care (01) ==
LOC: ER 21:20
DX: H11.31 Conjunctival hemorrhage, right eye (principal); J45.909 Unspecified asthma, uncomplicated; F32.9 Major depressive disorder, single episode, unspecified; I10 Essential (primary) hypertension; Z98.890 Other specified postprocedural states
CPT/HCPCS: 99283

== ENCOUNTER 2023-05-22 05:54 | Emergency (ER) | payer MEDICAID ==
[~2023-05-22] VITALS: Ht 167.6 cm; Wt 97.2 kg
[2023-05-22 06:10] VITALS: BP 148/65; RESP 18; TEMP 98.1; O2SAT 100
[2023-05-22 06:12] VITALS: PULSE 108
== END 2023-05-22 09:07 | disposition left against medical advice (07) ==
LOC: ER 06:41
DX: Z53.21 Procedure and treatment not carried out due to patient leaving prior to being seen by health care provider (principal)
CPT/HCPCS: 99281